=== PATIENT | male | born 1995 | race Caucasian/White ===

== ENCOUNTER 2021-05-22 23:30 | Emergency (ER) | payer BC ==
[2021-05-23] MEDS ORDERED: SODIUM CHLORIDE 0.9% 1,000 ML IV STA (00:57)
[2021-05-23] MEDS ORDERED: ONDANSETRON 4 MG/2 ML VIAL IVP STA (00:57)
[2021-05-23 02:20] LABS: Basophils % (A) 0 %; Eosinophils % (A) 0 %; HCT 49.8 % (39.0-53.0); HGB 17.1 gm/dL (13.0-17.5); Lymphocytes # (A) 0.7 k/uL (1.0-4.8); Lymphocytes % (A) 12 %; MCH 31.7 pg (25.0-35.0); MCHC 34.4 g/dL (31.0-37.0); MCV 92.3 fL (80.0-100.0); Mean Platelet Volume 7.5; Monocytes # (A) 0.5 k/uL (0-1.0); Monocytes % (A) 9 %; Neutrophils # (A) 4.6 k/uL (1.3-7.7); Neutrophils % (A) 76 %; Platelet Count 150 k/uL (150-450); RBC 5.39 m/uL (4.30-5.90); RDW 12.6 % (11.5-15.5); WBC 6.1 k/uL (3.8-10.6)
[2021-05-23 02:35] LABS: ALT 17 U/L (4-49); AST 35 U/L (17-59); African American GFR (CKD) >90 (>60 ml/min/1.73 sqM); Alkaline Phosphatase 54 U/L (38-126); Amylase 127 U/L (30-110); Anion Gap 14 mmol/L; Blood Urea Nitrogen 18 mg/dL (9-20); Calcium 9.8 mg/dL (8.4-10.2); Carbon Dioxide 23 mmol/L (22-30); Chloride 100 mmol/L (98-107); Glucose 121 mg/dL (74-99); Lipase 190 U/L (23-300); Non-African American GFR(CKD) >90 (>60 ml/min/1.73 sqM); Potassium 4.1 mmol/L (3.5-5.1); Sodium 137 mmol/L (137-145); Total Protein 8.3 g/dL (6.3-8.2)
[2021-05-23] MEDS ORDERED: ONDANSETRON 4 MG ODT STARTER PACK 2 TAB BTL PO STA (02:44)
[2021-05-23] MEDS ORDERED: DEXAMETHASONE SOD PHOSPHATE 10 MG/ML 1 ML VIAL IVP STA (02:44)
[2021-05-23 02:47] VITALS: BP 113/65; PULSE 60; RESP 16; TEMP 98.9
--- NOTE | 2021-05-23 02:47 | ED ---
Nausea/Vomiting/Diarrhea HPI - General Chief complaint: Nausea/Vomiting/Diarrhea Stated complaint: vomiting Time Seen by Provider: 05/23/21 00:57 Source: patient, RN notes reviewed Mode of arrival: ambulatory - History of Present Illness Initial comments: patient is a 25-year-old male that presents to the emergency department complaining of a 2 day history of nausea vomiting and not feeling well. He notes he had taken at home Covid test was negative. He can emergency room b ecause of nausea and not really keep anything down. Patient was otherwise well- appearing. He denied any other issues or complaints. He denied any chest pain shortness of breath headache diarrhea constipation fever fatigue chills. - Related Data Previous Rx's Medication Instructions Recorded predniSONE 50 mg PO DAILY #5 tab 05/23/21 Allergies Allergy/AdvReac Type Severity Reaction Status Date / Time Penicillins Allergy Rash/Hives Verified 05/23/21 00:44 Review of Systems ROS Statement: Those systems with pertinent positive or pertinent negative responses have been documented in the HPI. ROS Other: All systems not noted in ROS Statement are negative. Past Medical History Past Medical History: No Reported History History of Any Multi-Drug Resistant Organisms: None Reported Past Surgical History: Hernia Repair Additional Past Surgical History / Comment(s): Hernia Repair in 8th grade Past Psychological History: No Psychological Hx Reported Smoking Status: Current every day smoker, Vaper Past Alcohol Use History: Occasional Past Drug Use History: None Reported, Unable to Obtain, Marijuana General Exam General appearance: alert, in no apparent distress Head exam: Present: atraumatic, normocephalic, normal inspection Eye exam: Present: normal appearance, PERRL, EOMI. Absent: scleral icterus, conjunctival injection, periorbital swelling ENT exam: Present: normal exam, mucous membranes moist Neck exam: Present: normal inspection Respiratory exam: Present: normal lung sounds bilaterally. Absent: respiratory distress, wheezes, rales, rhonchi, stridor Cardiovascular Exam: Present: regular rate, normal rhythm, normal heart sounds. Absent: systolic murmur, diastolic murmur, rubs, gallop, clicks GI/Abdominal exam: Present: soft, normal bowel sounds. Absent: distended, tenderness, guarding, rebound, rigid Extremities exam: Present: normal inspection, full ROM, normal capillary refill. Absent: tenderness, pedal edema, joint swelling, calf tenderness Neurological exam: Present: alert, oriented X3 Psychiatric exam: Present: normal affect, normal mood Skin exam: Present: warm, dry, intact, normal color. Absent: rash Course Vital Signs 05/23/21 00:45 Temperature 98.2 F Pulse Rate 69 Respiratory 20 Rate Blood Pressure 119/76 O2 Sat by Pulse 100 Oximetry Medical Decision Making - Medical Decision Making 25-year-old male complaining of nausea vomiting and a mild fever. Labs, 1 L normal saline, 4 mg of Zofran, Covid test ordered. Labs are unremarkable. Covid test is positive. Patient does not meet criteria for monoclonal antibodies. 10 mg of Decadron ordered. Steroids and Zofran starter pack will be given. Patient informed of results in [facility] will discharge home. Case discussed with Dr. Sosa - Lab Data Result diagrams: 05/23/21 02:02 05/23/21 02:02 Lab Results 05/23/21 05/23/21 05/23/21 Range/Units 02:02 02:02 02:02 WBC 6.1 (3.8-10.6) k/uL RBC 5.39 (4.30-5.90) m/uL Hgb 17.1 (13.0-17.5) gm/dL Hct 49.8 (39.0-53.0) % MCV 92.3 (80.0-100.0) fL MCH 31.7 (25.0-35.0) pg MCHC 34.4 (31.0-37.0) g/dL RDW 12.6 (11.5-15.5) % Plt Count 150 (150-450) k/uL MPV 7.5 Neutrophils % 76 % Lymphocytes % 12 % Monocytes % 9 % Eosinophils % 0 % Basophils % 0 % Neutrophils # 4.6 (1.3-7.7) k/uL Lymphocytes # 0.7 L (1.0-4.8) k/uL Monocytes # 0.5 (0-1.0) k/uL Eosinophils # 0.0 (0-0.7) k/uL Basophils # 0.0 (0-0.2) k/uL Sodium 137 (137-145) mmol/L Potassium 4.1 (3.5-5.1) mmol/L Chloride 100 (98-107) mmol/L Carbon Dioxide 23 (22-30) mmol/L Anion Gap 14 mmol/L BUN 18 (9-20) mg/dL Creatinine 0.78 (0.66-1.25) mg/dL Est GFR (CKD-EPI)AfAm >90 (>60 ml/min/1.73 sqM) Est GFR (CKD-EPI)NonAf >90 (>60 ml/min/1.73 sqM) Glucose 121 H (74-99) mg/dL Calcium 9.8 (8.4-10.2) mg/dL Total Bilirubin 1.0 (0.2-1.3) mg/dL AST 35 (17-59) U/L ALT 17 (4-49) U/L Alkaline Phosphatase 54 (38-126) U/L Total Protein 8.3 H (6.3-8.2) g/dL Albumin 5.0 (3.5-5.0) g/dL Amylase 127 H (30-110) U/L Lipase 190 (23-300) U/L Coronavirus (PCR) Detected A (Not Detectd) Disposition Clinical Impression: COVID Disposition: HOME SELF-CARE Condition: Stable Instructions (If sedation given, give patient instructions): Coronavirus Disease 2019 (COVID-19) Additional Instructions: Please return to the Emergency Department if symptoms worsen or any other concerns. Follow-up with primary care in 1-2 days. Take prednisone as prescribed. Take Zofran as needed for nausea. Is patient prescribed a controlled substance at d/c from ED?: No Referrals: Yusuf Cortes MD [Primary Care Provider] - 1-2 days Time of Disposition: 02:47
== END 2021-05-23 03:04 | disposition home or self-care (01) ==
LOC: EC 23:30
DX: U07.1 COVID-19 (principal); F17.200 Nicotine dependence, unspecified, uncomplicated; Z72.89 Other problems related to lifestyle
CPT/HCPCS: 36415; 80053; 82150; 83690; 85025; 87635; 99284; 96374; 96375; 96361; J1100; J2405; S0119